=== PATIENT | female | born 1960 | race Caucasian/White ===

== ENCOUNTER 2020-01-12 13:10 | Outpatient (CLI) | payer OTHER, SELFPAY ==
--- NOTE | ~2020-01-12 | XR_ITS ---
XR hip RT 2V w AP pelvis DATE: 01/12/2020 13:29 INDICATION: Right hip pain TECHNIQUE: AP pelvis. AP and lateral views of right hip COMPARISON: None FINDINGS: No pelvic fracture or bone destruction. The pubic symphysis and sacroiliac joints are intac t. Hip joint spaces are symmetric and well preserved. No fracture, dislocation, avascular necrosis or bone destruction of the right hip is detected. IMPRESSION: Negative Reviewed, dictated and finalized at location B. IMPRESSION: Negative
== END 2020-01-12 13:11 | disposition home or self-care (01) ==
LOC: ANHIMG 13:17
PROVIDERS: PCP Nurse Practitioner; Visit Provider Nurse Practitioner
DX: M25.551 Pain in right hip (principal)
CPT/HCPCS: 73502

== ENCOUNTER 2022-07-21 07:59 | Outpatient (CLI) | payer OTHER, SELFPAY ==
[2022-07-21 10:19] LABS: Basophils Absolute Auto 0.1 K/mm3 (0.0-0.1); Basophils Percent Auto 1.3 % (0.2-1.2); Eosinophils Absolute Auto 0.5 K/mm3 (0-0.3); Eosinophils Percent Auto 8.1 % (0-4.4); Hematocrit 45.5 % (37.0-47.0); Hemoglobin 15.1 g/dL (12.0-15.0); Immature Granulocyte Absolute 0.01 K/mm3 (0.00-0.031); Immature Granulocyte Percent A 0.1 % (0-0.5); Lymphocytes Absolute Auto 2.13 K/mm3 (0.9-3.2); Lymphocytes Percent Auto 31.8 % (18.3-44.2); Mean Corpuscular HGB Conc 33.2 g/dl (32-36); Mean Corpuscular Hemoglobin 31.6 pg (26-34); Mean Corpuscular Volume 95.2 fl (80-100); Mean Platelet Volume 9.7 fl (7.4-10.4); Monocytes Absolute Auto 0.7 K/mm3 (0.1-0.6); Monocytes Percent Auto 10.9 % (2.6-8.5); Neutrophils Absolute Auto 3.2 K/mm3 (1.3-6.7); Neutrophils Percent Auto 47.8 % (45.5-73.1); Platelet Count Result 357 k/mm3 (150-375); Red Blood Count 4.78 M/mm3 (4.2-5.4); Red Cell Distribution Width 13.5 % (11.5-14.5); White Blood Count 6.7 K/mm3 (4.5-10.0)
[2022-07-21 10:32] LABS: Alanine Aminotransferase 41 U/L (6-35); Albumin Level 4.4 g/dL (3.5-5.1); Alkaline Phosphatase 77 U/L (38-126); Anion Gap 5 mmol/L (8-16); Aspartate Amino Transferase 30 U/L (14-36); Bilirubin,Total 0.6 mg/dL (0.2-1.3); Blood Urea Nitrogen 19 mg/dL (7-17); CRP < 0.5 mg/dL (<1.0); Calcium 9.5 mg/dL (8.4-10.2); Carbon Dioxide 33 mmol/L (22-30); Chloride 101 mmol/L (98-107); Cholesterol 235 mg/dL (0-200); Estimated Glomerular Filt Rate > 60; Glucose 115 mg/dL (65-110); HDL Direct 43 mg/dL; Potassium 4.1 mmol/L (3.4-5.0); Sodium 139 mmol/L (137-145); Triglycerides 179 mg/dL (<150)
[2022-07-21 10:39] LABS: Iron 89 ug/dL (37-170); NT Pro B Type Natriuretic Pept 40 pg/mL (19.9-100)
[2022-07-21 10:41] LABS: LDL Cholesterol Direct 134 mg/dL
[2022-07-21 10:42] LABS: Creatinine Urine 127.4 mg/dL
[2022-07-21 10:48] LABS: Percent Iron Saturation 21 % (20-50)
[2022-07-21 10:59] LABS: Free T4 Free Thyroxine 1.85 ng/mL (0.78-2.19); Vitamin D 25 Hydroxy 34.8 ng/mL
[2022-07-21 11:01] LABS: Thyroid Stimulating Hormone 0.662 uIU/mL (0.465-4.680); Total Triiodothyronine (T3) 1.27 NG/ML (0.97-1.69)
[2022-07-21 11:09] LABS: Hemoglobin A1C 6.7 % (<5.7)
[2022-07-21 12:22] LABS: MALB Creatinine Ratio < 4.7 mg/g (0-30); Microalbumin Urine Random < 6.0 mg/L (0-16.7)
== END 2022-07-21 08:00 | disposition home or self-care (01) ==
PROVIDERS: PCP Emergency Medicine; Visit Provider Internal Medicine Cardiovascular Disease
DX: I10 Essential (primary) hypertension (principal); E78.5 Hyperlipidemia, unspecified; E11.9 Type 2 diabetes mellitus without complications; E03.9 Hypothyroidism, unspecified
CPT/HCPCS: 36415; 80053; 80061; 82043; 82306; 82607; 82728; 83036; 83540; 83550; 83880; 84439; 84443; 84480; 85025; 86140

== ENCOUNTER 2022-12-08 09:06 | Outpatient (CLI) | payer OTHER, SELFPAY ==
--- NOTE | ~2022-12-08 | XR_ITS ---
XR chest 2V DATE: 12/08/2022 09:47 INDICATION: Cough for 3 weeks. Chronic smoker. TECHNIQUE: PA and lateral views COMPARISON: None FINDINGS: Heart size is within normal range. Mild aortic tortuosity and calcification. No hilar or me diastinal enlargement. No pulmonary infiltrate or consolidation, pleural effusion or pulmonary vascular congestion or pneumo thorax. Mild to moderate degenerative spurring and scoliosis of the thoracic and lumbar spine. IMPRESSION: No active cardiopulmonary disease Reviewed, dictated and finalized at location A.
[2022-12-08 10:25] LABS: Appearance Urine Clear (Clear); Bilirubin Urine Negative (Negative); Blood Urine Negative (Negative); Color Urine Yellow (Yellow); Glucose Urine UA 3+ mg/dL (Negative); Ketones Urine Negative (Negative); Leukocyte Esterase Ur Negative LEU/UL (NEGATIVE); Nitrate Urine Negative (Negative); Protein Urine Negative (Negative); Specific Grav Ur 1.025 (1.001-1.035); Urobilinogen Urine 0.2 mg/dL (<2.0); pH Urine 5.5 (5.0-9.0)
[2022-12-08 10:42] LABS: Add Urine Microscopic? NO
[2022-12-08 10:58] LABS: Anion Gap 6 mmol/L (8-16); Blood Urea Nitrogen 18 mg/dL (7-17); Calcium 8.9 mg/dL (8.4-10.2); Carbon Dioxide 26 mmol/L (22-30); Chloride 105 mmol/L (98-107); Cholesterol 170 mg/dL (0-200); Estimated Glomerular Filt Rate > 60; Glucose 128 mg/dL (65-110); HDL Direct 53 mg/dL; Potassium 4.3 mmol/L (3.4-5.0); Sodium 137 mmol/L (137-145); Triglycerides 131 mg/dL (<150)
[2022-12-08 11:02] LABS: NT Pro B Type Natriuretic Pept 42 pg/mL (19.9-100)
[2022-12-08 11:08] LABS: Free T4 Free Thyroxine 0.96 ng/mL (0.78-2.19); LDL Cholesterol Direct 93 mg/dL; Vitamin D 25 Hydroxy 37.2 ng/mL
[2022-12-08 12:33] LABS: MALB Creatinine Ratio < 8.3 mg/g (0-30); Microalbumin Urine Random < 6.0 mg/L (0-16.7)
[2022-12-08 13:23] LABS: Hemoglobin A1C 7.3 % (<5.7)
[2022-12-08 13:53] LABS: Hepatitis B Surface Antigen Negative (Negative)
[2022-12-08 14:00] LABS: HAV RESULT Negative (Negative); Hepatitis B Core IgM Result Negative (Negative)
[2022-12-08 14:11] LABS: Hepatitis C Virus Antibody Negative (Negative)
[2022-12-12 04:29] LABS: Thyroid Peroxidase Antibodies 64 IU/mL (<9)
[2022-12-13 03:34] LABS: Lipoprotein A 264 nmol/L (<75)
[2022-12-13 19:35] LABS: CRP, High Sensitivity 1.3 mg/L (***)
[2022-12-14 05:46] LABS: Triiodothyronine T3 Free 2.4 pg/mL (2.3-4.2)
== END 2022-12-08 09:07 | disposition home or self-care (01) ==
PROVIDERS: PCP Emergency Medicine; Referring Provider Internal Medicine Cardiovascular Disease; Visit Provider Emergency Medicine
DX: E11.9 Type 2 diabetes mellitus without complications (principal); E78.5 Hyperlipidemia, unspecified; I10 Essential (primary) hypertension
CPT/HCPCS: 36415; 71046; 80048; 80061; 80074; 81003; 82043; 82306; 83036; 83695; 83880; 84439; 84443; 84481; 86141; 86376

== ENCOUNTER 2023-01-10 14:36 | Outpatient (CLI) | payer OTHER, SELFPAY ==
--- NOTE | ~2023-01-10 | US_ITS ---
EXAMINATION: US thyroid DATE: 01/10/2023 15:26 INDICATION: Hypothyroidism. Hypertension. TECHNIQUE: Multiple ultrasound images of the thyroid were obtained. COMPARISON: None. FINDINGS: The right thyroid lobe measures 2.9 x 0.9 x 1.1 cm. The left thyroid lobe measures 2.9 x 0.9 x 1.3 c m. The thyroid demonstrates heterogeneous echogenicity. Vascularity is normal. In the right thyroid l obe, there is a 1.4 cm solid, hypoechoic, wider than tall nodule with lobulated margin without echoge kal foci (TI-RADS TR4). In the left thyroid lobe, there is a 9 mm solid, hypoechoic, wider than tall nodule with lobulated margin without echogenic foci (TR4). IMPRESSION: 1. Thyroid nodules. Thyroid ultrasound is recommended in one year. Reviewed, dictated and finalized at location A.
[2023-01-10 14:53] LABS: Hematocrit 45.4 % (37.0-47.0); Hemoglobin 14.9 g/dL (12.0-15.0); Mean Corpuscular HGB Conc 32.8 g/dl (32-36); Mean Corpuscular Hemoglobin 31.8 pg (26-34); Mean Corpuscular Volume 96.8 fl (80-100); Mean Platelet Volume 9.7 fl (7.4-10.4); Platelet Count Result 380 k/mm3 (150-375); Red Blood Count 4.69 M/mm3 (4.2-5.4); Red Cell Distribution Width 14.1 % (11.5-14.5); White Blood Count 8.6 K/mm3 (4.5-10.0)
== END 2023-01-10 14:37 | disposition home or self-care (01) ==
LOC: ANHIMG 14:37
PROVIDERS: PCP Emergency Medicine; Visit Provider Emergency Medicine
DX: R59.0 Localized enlarged lymph nodes (principal); E04.2 Nontoxic multinodular goiter
CPT/HCPCS: 36415; 76536; 85027

== ENCOUNTER 2023-03-25 14:19 | Outpatient (CLI) | payer OTHER, SELFPAY ==
[2023-03-25 15:20] LABS: Hematocrit 46.2 % (37.0-47.0); Hemoglobin 15.1 g/dL (12.0-15.0); Mean Corpuscular HGB Conc 32.7 g/dl (32-36); Mean Corpuscular Hemoglobin 31.9 pg (26-34); Mean Corpuscular Volume 97.5 fl (80-100); Mean Platelet Volume 10.4 fl (7.4-10.4); Platelet Count Result 326 k/mm3 (150-375); Red Blood Count 4.74 M/mm3 (4.2-5.4); Red Cell Distribution Width 13.4 % (11.5-14.5); White Blood Count 8.6 K/mm3 (4.5-10.0)
== END 2023-03-25 14:20 | disposition home or self-care (01) ==
LOC: ANHLAB 14:21
PROVIDERS: PCP Emergency Medicine; Visit Provider Emergency Medicine
DX: D75.839 Thrombocytosis, unspecified (principal)
CPT/HCPCS: 36415; 85027